=== PATIENT | female | born 2000 | race African-American/Black ===

== ENCOUNTER 2022-01-10 07:43 | Emergency (ER) | payer BC ==
[~2022-01-10] VITALS: Ht 162.6 cm; Wt 71.0 kg
[2022-01-10 07:44] VITALS: BP 131/77
[2022-01-10] MEDS ORDERED: LIDOCAINE HCL/EPINEPHRINE 1%-EPI 1:100,000 50 ML VIAL INFIL SCH (08:30)
[2022-01-10] MEDS ORDERED: AMOX1TAB15 MT (09:10)
[2022-01-10] MEDS ORDERED: HYDR-4001 MT (09:10)
[2022-01-10] MEDS ORDERED: DIF15 MT (09:15)
[2022-01-10 09:19] LABS: BASOPHILS % 0.3 % (0.0-2.0); EOSINOPHILS % 0.2 % (0.0-5.0); HEMATOCRIT. 36.3 % (36.0-48.0); HEMOGLOBIN. 12.3 g/dL (12.0-16.0); LYMPHOCYTES % 11.8 % (20.0-50.0); MEAN CORPUSCULAR HEMOGLOBIN 30.2 pg (28.0-32.0); MEAN CORPUSCULAR VOLUME 88.9 fL (81.0-99.0); MEAN PLATELET VOLUME 8.2 fl (7.4-10.4); MONOCYTES % 10.2 % (2.0-8.0); NEUTROPHILS % 77.5 % (40.0-76.0); PLATELET 280 x1000/uL (130-400); RED BLOOD CELL COUNT 4.08 mill/uL (4.2-5.4); RED CELL DISTRIBUTION WIDTH 14.1 % (11.6-14.6)
[2022-01-10 09:26] LABS: CHLORIDE 105 mEq/L (98-107)
[2022-01-10 10:06] LABS: CLARITY URINE CLOUDY (CLEAR); COLOR URINE YELLOW (YELLOW); KETONES URINE TRACE (NEGATIVE); LEUKOCYTE ESTERASE URINE 2+ (NEGATIVE); NITRITE URINE NEGATIVE (NEGATIVE); OCCULT BLOOD URINE 3+ (NEGATIVE); PH URINE 6.5 (4.5-8.0); PROTEIN URINE 1+ (NEGATIVE); SPECIFIC GRAVITY URINE 1.026 (1.005-1.030)
[2022-01-12 04:09] LABS: NEISSERIA GONORRHOEAE NAA Negative (Negative)
== END 2022-01-10 09:47 | disposition home or self-care (01) ==
LOC: ER 07:43
DX: L02.214 Cutaneous abscess of groin (principal)
CPT/HCPCS: 10060; 36415; 80053; 81003; 81025; 85025; 87210; 87491; 87591; 99283; Z7610